=== PATIENT | female | born 1945 | race Two or more races ===

== ENCOUNTER 2023-09-10 14:43 | Emergency (ER) | payer MEDICARE, SELFPAY ==
--- NOTE | ~2023-09-10 | XR_ITS ---
EXAMINATION: XR CHEST CLINICAL INFORMATION: Pain COMPARISON: None available. TECHNIQUE: 2 views of the chest were obtained. FINDINGS: Cardiac silhouette is normal in size. The lungs are well aerated. There is diffuse coarsening of the interstitial markings. There is no lobar consolidation. 8mm nodular density of the right lung apex, nonspecific. No pleural effusion or pneumothorax. Mild degenerative changes of the spine. XR/XR chest 2V IMPRESSION: 1. Diffuse coarsening of the interstitial markings. This is a nonspecific finding but may represent an acute or chronic process. Unfortunately there is no prior imaging available for comparison. 2. 8 mm nodular density of the right lung apex. This is a nonspecific finding. This may represent a pulmonary finding or possibly an osseous abnormality. Further evaluation can be obtained with chest CT as clinically indicated.
--- NOTE | ~2023-09-10 | CT_ITS ---
EXAMINATION: CT ABDOMEN AND PELVIS WITHOUT CONTRAST CLINICAL INFORMATION: Left lower quadrant pain. COMPARISON: None available. TECHNIQUE: Multidetector volumetric imaging was performed from the superior aspect of the liver through the pubic symphysis. Sagittal and coronal reformatted images were obtained on the technologist's workstation. This CT examination was performed using dose optimization techniques as appropriate, variously including the following: *Automated exposure control *Adjustment of mA and/or kV according to patient size (this includes techniques or standardized protocols for targeted exams where dose is matched to indication/reason for exam; i.e. extremities or head) *Use of iterative reconstruction technique DLP: 513 mGy-cm FINDINGS: LUNG BASES: There is mild bibasilar dependent hypoaeration. There are tiny bilateral pleural effusions. There are moderate coronary artery atherosclerotic calcifications. The heart is mildly enlarged. LIVER, GALLBLADDER, AND BILIARY TREE: The liver is normal in size, shape, and attenuation. No focal hepatic lesion or biliary ductal dilatation is present. The gallbladder is unremarkable with no evidence of radiopaque gallstones, gallbladder wall thickening, or obvious pericholecystic inflammatory changes. PANCREAS: Unremarkable. SPLEEN: Unremarkable. ADRENAL GLANDS: Unremarkable. KIDNEYS AND URETERS: The kidneys are normal in size, shape, and attenuation. No hydronephrosis, hydroureter, or calculi seen. The left kidney contains a 1.4 cm mildly complex (Bosniak 2) cyst, with fine septation (3:29). This is a likely benign finding, for which no imaging follow-up is recommended. No perinephric stranding. BLADDER: Unremarkable. GASTROINTESTINAL TRACT: There is mild diverticulosis, without acute diverticulitis. No bowel obstruction, free intraperitoneal air or abscess is seen. There is no focal bowel wall thickening. There is a mild fat halo sign seen of the cecum and transverse colon (i.e., 3:52 and 5:19). The vermiform appendix is not identified; however, there is no finding to suggest appendicitis. ABDOMINAL WALL: No significant hernia is appreciated. LYMPH NODES: Normal. VASCULAR: There is mild aortoiliac atherosclerotic calcification. No abdominal aortic aneurysm is seen. PELVIC VISCERA: Surgically absent. No pelvic mass, free fluid or lymphadenopathy is seen. OSSEOUS STRUCTURES: Posterior fusion hardware is noted at L4-L5. There is multi-level thoracolumbar degenerative disc disease, most pronounced at L2-L3, where there is marked disc space narrowing, vacuum disc phenomenon and spondylosis. No acute or aggressive osseous finding is noted. CT/CT abdomen pelvis wo IV con IMPRESSION: 1. There is mild diverticulosis, without acute diverticulitis. 2. No bowel obstruction, free intraperitoneal air or abscess is seen. The vermiform appendix is not identified. 3. There is a fat halo sign noted of the cecum and transverse colon, as detailed. There is no associated paracolic fat stranding or abscess to suggest this is active. 4. No abdominopelvic mass, free fluid or lymphadenopathy is seen. 5. There is no urinary calculus or obstruction seen. 6. There are postoperative and degenerative changes of the spine, as detailed. 7. There are tiny bilateral pleural effusions, and there is very mild bibasilar dependent hypoaeration. 8. There is mild cardiomegaly, and moderate coronary artery atherosclerotic calcifications are seen. Fleischner guidelines were followed.
[2023-09-10 15:04] VITALS: BP 124/70; PULSE 93; RESP 18; TEMP 36.5; O2SAT 97; BMI 28.0
--- NOTE | 2023-09-10 15:04 | ED_ITS ---
HPI - General Adult General Chief complaint: Abdominal Pain Stated complaint: asthma, L side and back pain Time Seen by Provider: 09/10/23 21:58 Source: patient Mode of arrival: ambulatory Limitations: no limitations History of Present Illness HPI narrative: Patient history of asthma hypertension been coughing for last few days for last 2 days noticed lower abdominal pain on mostly on the left side radiating to the left back associated with nausea and vomiting diarrhea no fever no chills cough is mostly dry no other family member sick Related Data Previous Rx's Medication Instructions Recorded albuterol sulfate 2.5 mg/3 mL 2.5 mg (3 mL) inhalation Q4-6H PRN 09/11/23 (0.083 %) solution for nebulization shortness of breath or wheezing #90 mL albuterol sulfate 90 mcg/actuation 2 puff inhalation Q4-6H PRN 09/11/23 aerosol inhaler (ProAir HFA) shortness of breath or wheezing #8.5 grams codeine 10 mg-guaifenesin 100 mg/5 10 ml PO Q6H PRN cough #237 mL 09/11/23 mL oral liquid prednisone 20 mg tablet 40 mg (2 x 20 mg) PO DAILY #10 tabs 09/11/23 Allergies Allergy/AdvReac Type Severity Reaction Status Date / Time No Known Allergies Allergy Verified 09/10/23 15:03 Review of Systems 2 Review of Systems: Yes all other systems are reviewed and are negative PMFSH Past Medical History Medical History Coronary artery disease Chronic back pain Asthma Hypertension Surgical History History of total abdominal hysterectomy Previous back surgery Social History Social History Advance Directives: No Advance Directives Information Provided: No Physical Exam ED Vital Signs: Vital Signs - 24 hr 09/10/23 15:04 09/10/23 21:27 09/10/23 22:47 Temperature 97.7 F 98.8 F Pulse Rate 93 95 95 Respiratory Rate 18 18 18 Blood Pressure 124/70 188/85 H Pulse Oximetry 97 97 Oxygen Delivery Method Room Air Room Air 09/10/23 23:45 09/11/23 01:38 Temperature 100.2 F 99.1 F Pulse Rate 112 H 103 H Respiratory Rate 20 18 Blood Pressure 117/53 L 103/56 L Pulse Oximetry 94 96 Oxygen Delivery Method Room Air Room Air BMI result Body Mass Index 28.0 Appearance: Alert. Oriented X3. No acute distress. Eyes: PERRLA, No Nystagmus ENT: Pharynx normal. Oral Mucosa moist Neck: Normal inspection. Neck supple. CVS: Normal heart rate and rhythm. Pulses normal. Respiratory: No respiratory distress. Equal air entry bilateral, no wheezing/rales/rhonchi, prolonged expiration Abdomen: Soft , tenderness left lower quadrant with guarding no rebound tenderness. Bowel sounds are present, no mass palpable, no CVA tenderness Skin: Skin warm and dry. Normal skin color. Normal skin turgor. Extremities: + lower extremity edema. No calf tenderness Neuro: Oriented X 3. No motor deficit. No sensory deficit.No cerebellar signs , cranial nerves II-XII intact Course Course Course Narrative: RME- 78-year-old female presents for evaluation fevers body aches, left flank pain and shortness of breath. She has a history of asthma. Plan for labs, chest x-ray, UA, EKG. Medications Administered Discontinued Medications Generic Name Dose Route Start Last Admin Trade Name Freq PRN Reason Stop Dose Admin Acetaminophen 650 mg 09/11/23 00:39 09/11/23 00:54 Acetaminophen 325 Mg Tablet PO 09/11/23 00:40 650 mg ONCE ONE Administration Benzonatate 200 mg 09/10/23 22:19 09/10/23 22:30 Benzonatate 100 Mg Capsule PO 09/10/23 22:20 200 mg ONCE ONE Administration Albuterol Sulfate 2.5 mg/ 0 mg 09/10/23 22:26 09/10/23 22:44 Albuterol/Ipratropium 3 ml INHALE 09/10/23 22:27 7.5 dose ONCE ONE Administration Dexamethasone Sodium Phosphate 10 mg 09/10/23 22:19 09/10/23 22:31 Dexamethasone Sod Phosphate 10 Mg/Ml Vial IVPUSH 09/10/23 22:20 10 mg ONCE ONE Administration Sodium Chloride 1,000 mls @ 999 mls/hr 09/10/23 22:13 09/11/23 00:55 Ns IV 09/10/23 23:13 Infused .Q1H1M ONE Infusion Ketorolac Tromethamine 30 mg 09/11/23 00:39 09/11/23 00:54 Ketorolac Tromethamine 30 Mg/Ml Vial IVPUSH 09/11/23 00:40 30 mg ONCE ONE Administration Morphine Sulfate 4 mg 09/10/23 22:13 09/10/23 22:41 Morphine Sulfate 4 Mg/Ml Cartridge IVPUSH 09/10/23 22:14 4 mg ONCE ONE Administration Protocol Ondansetron HCl 4 mg 09/10/23 22:13 09/10/23 22:37 Ondansetron Hcl 4 Mg/2 Ml Vial IVPUSH 09/10/23 22:14 4 mg ONCE ONE Administration Medical Decision Making Medical Decision Making [facility] Narrative: Patient with COVID coughing with low-grade fever saturating 94% at room air. left sided abdominal pain CT scan negative for acute patient saturation improved after pain medication and nebulizer treatment Differential Diagnosis Differential Diagnoses: The differential diagnosis associated with the presentation includes COVID/diverticulitis/UTI/kidney stone Lab Data [facility] Lab Attestation statement: I reviewed the patient's lab results. 09/10/23 15:49 09/10/23 15:49 Labs: Lab Results 09/10/23 09/10/23 09/10/23 Range/Units 15:49 15:49 15:49 WBC 7.7 (4.8-10.8) X10*3/uL RBC 3.96 L (4.20-5.50) X10*6/uL Hgb 11.6 L (12.0-16.0) g/dl Hct 35.3 L (37.0-47.0) % MCV 89.1 (80.0-98.0) fL MCH 29.3 (27.0-33.0) pg MCHC 32.9 (31.0-35.0) g/dl RDW 14.2 (11.0-16.0) % Plt Count 200 (160-400) X10*3/uL MPV 9.9 (9.4-12.3) fL Immature Gran % (Auto) 0.5 H (0.0-0.4) % Neut % (Auto) 84.8 H (45-73) % Lymph % (Auto) 7.9 L (20-40) % [place]ule[place] % (Auto) 5.6 (2-11) % Eos % (Auto) 0.8 (0-4) % Baso % (Auto) 0.4 (0-2) % Lymph # (Auto) 0.6 L (1.2-4.9) X10*3/uL [place] # (Auto) 0.4 (0.1-1.2) X10*3/uL Eos # (Auto) 0.1 (0.0-0.4) X10*3/uL Baso # (Auto) 0.0 (0.0-0.2) X10*3/uL Abs Immat Gran (auto) 0.04 H (0.00-0.03) X10*3/uL Absolute Neuts (auto) 6.5 (2.0-8.3) x10*3/uL Absolute Nucleated RBC 0.000 (0.0-0.012) X10*3/uL Nucleated RBC % (auto) 0.0 (0.0-0.2) /100WBC PT (11.1-13.3) SEC INR (0.9-1.1) D-Dimer High Sensitivty NG/ML Sodium 135 (135-145) mmol/L Potassium 3.6 (3.3-5.1) mmol/L Chloride 104 (96-108) mmol/L Carbon Dioxide 25 (22-29) mmol/L Anion Gap 10 L (12-20) BUN 16 (9-16) mg/dL Creatinine 0.71 (0.5-1.4) mg/dL Estim Creat Clear Calc 56.3 Estimated GFR > 60 Random Glucose 95 (60-115) mg/dL Calcium 8.9 (8.4-10.2) mg/dL Total Bilirubin 0.2 (0.0-1.0) mg/dL AST 15 (5-31) U/L ALT 10 (0-31) U/L Alkaline Phosphatase 68 (39-117) U/L Troponin I High Sens 5.1 (<3.5-17.0) ng/L B-Natriuretic Peptide (<100) pg/mL Total Protein 6.0 L (6.5-8.0) g/dL Albumin 3.6 (3.5-5.0) g/dL Lipase 24 (8-78) U/L Urine Color Urine Appearance Urine pH (5.0-9.0) Ur Specific Creola (1.005-1.025) Urine Protein (Neg-Trace) mg/dL Urine Glucose (UA) (Negative) mg/dL Urine Ketones (Negative) mg/dL Urine Blood (Negative) Urine Nitrite (Negative) Ur Leukocyte Esterase (Negative) Urine RBC (0-2) /HPF Urine WBC (0-5) /HPF Ur Squamous Epith Cells (0-2) /HPF Urine Bacteria (None Seen) Hyaline Casts (0-2) /LPF COVID-19 (ISAIAS) Cancelled Positive A COVID-19 Clin Com Cancelled See Note Influenza Type A (AYSHA) Negative (Negative) Influenza Type B (AYSHA) Negative (Negative) Influenza A & B Note See Note 09/10/23 09/11/23 Range/Units 15:56 00:27 WBC (4.8-10.8) X10*3/uL RBC (4.20-5.50) X10*6/uL Hgb (12.0-16.0) g/dl Hct (37.0-47.0) % MCV (80.0-98.0) fL MCH (27.0-33.0) pg MCHC (31.0-35.0) g/dl RDW (11.0-16.0) % Plt Count (160-400) X10*3/uL MPV (9.4-12.3) fL Immature Gran % (Auto) (0.0-0.4) % Neut % (Auto) (45-73) % Lymph % (Auto) (20-40) % Archule[place] % (Auto) (2-11) % Eos % (Auto) (0-4) % Baso % (Auto) (0-2) % Lymph # (Auto) (1.2-4.9) X10*3/uL [place] # (Auto) (0.1-1.2) X10*3/uL Eos # (Auto) (0.0-0.4) X10*3/uL Baso # (Auto) (0.0-0.2) X10*3/uL Abs Immat Gran (auto) (0.00-0.03) X10*3/uL Absolute Neuts (auto) (2.0-8.3) x10*3/uL Absolute Nucleated RBC (0.0-0.012) X10*3/uL Nucleated RBC % (auto) (0.0-0.2) /100WBC PT 13.2 (11.1-13.3) SEC INR 1.1 (0.9-1.1) D-Dimer High Sensitivty 359 NG/ML Sodium (135-145) mmol/L Potassium (3.3-5.1) mmol/L Chloride (96-108) mmol/L Carbon Dioxide (22-29) mmol/L Anion Gap (12-20) BUN (9-16) mg/dL Creatinine (0.5-1.4) mg/dL Estim Creat Clear Calc Estimated GFR Random Glucose (60-115) mg/dL Calcium (8.4-10.2) mg/dL Total Bilirubin (0.0-1.0) mg/dL AST (5-31) U/L ALT (0-31) U/L Alkaline Phosphatase (39-117) U/L Troponin I High Sens (<3.5-17.0) ng/L B-Natriuretic Peptide 127 H (<100) pg/mL Total Protein (6.5-8.0) g/dL Albumin (3.5-5.0) g/dL Lipase (8-78) U/L Urine Color Yellow Urine Appearance Clear Urine pH 6.5 (5.0-9.0) Ur Specific Cre[place] 1.010 (1.005-1.025) Urine Protein Negative (Neg-Trace) mg/dL Urine Glucose (UA) Negative (Negative) mg/dL Urine Ketones Trace (Negative) mg/dL Urine Blood Negative (Negative) Urine Nitrite Negative (Negative) Ur Leukocyte Esterase Negative (Negative) Urine RBC 0-2 (0-2) /HPF Urine WBC 0-5 (0-5) /HPF Ur Squamous Epith Cells 0-2 (0-2) /HPF Urine Bacteria None Seen (None Seen) Hyaline Casts 0-2 (0-2) /LPF COVID-19 (ISAIAS) COVID-19 Clin Com Influenza Type A (AYSHA) (Negative) Influenza Type B (AYSHA) (Negative) Influenza A & B Note Independent Interpretation I performed an independent interpretation of an: CT Scan Radiology Impression Discussion of test interpretation with radiology: I have reviewed the radiologist's reading. Discharge Plan Discharge Clinical Impression: COVID-19 Patient Disposition: Home, Self-Care Instructions: COVID-19 (Coronavirus Disease 2019) (ED) Additional Instructions: Social distancing as advised Nebulizing treatment every 4-6 hours as needed Prednisone as prescribed Tylenol/Motrin for fever and body aches Cough drops as prescribed Follow with PCP if not better Distanciamiento social seg?n lo recomendado Tratamiento nebulizador cada 4-6 horas seg?n sea necesario Prednisona seg?n lo prescrito Tylenol/Motrin para la fiebre y los garfield corporales Pastillas para la tos seg?n lo prescrito Seguir con PCP si no es mejor Prescriptions: New prednisone 20 mg tablet 40 mg PO DAILY Qty: 10 0RF codeine-guaifenesin 10-100 mg/5 mL liquid 10 ml PO Q6H PRN (Reason: cough) Qty: 237 0RF albuterol sulfate [ProAir HFA] 90 mcg/actuation HFA aerosol inhaler 2 puff inhalation Q4-6H PRN (Reason: shortness of breath or wheezing) Qty: 8.5 0RF albuterol sulfate 2.5 mg /3 mL (0.083 %) solution for nebulization 2.5 mg inhalation Q4-6H PRN (Reason: shortness of breath or wheezing) Qty: 90 0RF Print Language: Mongolian
--- NOTE | 2023-09-10 15:05 | ECG_ITS ---
Test Reason : pain Blood Pressure : / mmHG Vent. Rate : 086 BPM Atrial Rate : 086 BPM P-R Int : 138 ms QRS Dur : 084 ms QT Int : 366 ms P-R-T Axes : 052 018 024 degrees QTc Int : 437 ms Normal sinus rhythm Normal ECG No previous ECGs available Referred By: Alonso Steward Electronically Signed By:LYLE DOWD MD
[2023-09-10 15:55] LABS: MANUAL DIFF FLAG NO
[2023-09-10 15:58] LABS: Basophils Percent Auto 0.4 % (0-2); Eosinophils Absolute Auto 0.1 X10*3/uL (0.0-0.4); Eosinophils Percent Auto 0.8 % (0-4); Hematocrit 35.3 % (37.0-47.0); Hemoglobin 11.6 g/dl (12.0-16.0); Imm Gran Abs Auto 0.04 X10*3/uL (0.00-0.03); Imm Gran Pct Auto 0.5 % (0.0-0.4); Lymphocytes Absolute Auto 0.6 X10*3/uL (1.2-4.9); Lymphocytes Percent Auto 7.9 % (20-40); Mean Corpuscular HGB Conc 32.9 g/dl (31.0-35.0); Mean Corpuscular Hemoglobin 29.3 pg (27.0-33.0); Mean Corpuscular Volume 89.1 fL (80.0-98.0); Mean Platelet Volume 9.9 fL (9.4-12.3); Monocytes Absolute Auto 0.4 X10*3/uL (0.1-1.2); Monocytes Percent Auto 5.6 % (2-11); Neutrophils Absolute Auto 6.5 x10*3/uL (2.0-8.3); Neutrophils Percent Auto 84.8 % (45-73); Platelet Count 200 X10*3/uL (160-400); Red Blood Count 3.96 X10*6/uL (4.20-5.50); Red Cell Distribution Width 14.2 % (11.0-16.0); White Blood Count 7.7 X10*3/uL (4.8-10.8)
[2023-09-10 16:10] LABS: Alanine Aminotransferase 10 U/L (0-31); Albumin Level 3.6 g/dL (3.5-5.0); Alkaline Phosphatase 68 U/L (39-117); Anion Gap 10 (12-20); Aspartate Amino Transferase 15 U/L (5-31); Bilirubin Total 0.2 mg/dL (0.0-1.0); Blood Urea Nitrogen 16 mg/dL (9-16); Calcium 8.9 mg/dL (8.4-10.2); Carbon Dioxide 25 mmol/L (22-29); Chloride 104 mmol/L (96-108); Creatinine Clr Calc Pharmacy 56.3; Estimated Glomerular Filt Rate > 60; Glucose Random 95 mg/dL (60-115); Lipase 24 U/L (8-78); Potassium 3.6 mmol/L (3.3-5.1); Sodium 135 mmol/L (135-145)
[2023-09-10 16:12] LABS: Appearance Urine Clear; Color Urine Yellow; Glucose Urine UA Negative (Negative); Leukocyte Esterase Urine Negative (Negative); Nitrite Urine Negative (Negative); PH 6.5 (5.0-9.0); Urine Blood Negative (Negative); Urine Ketones Trace mg/dL (Negative); Urine Protein Negative (Neg-Trace)
[2023-09-10 16:17] LABS: Troponin-I High Sensitivity 5.1 ng/L (<3.5-17.0)
[2023-09-10 16:18] LABS: COVID-19 Test Positive (Negative); IDNOW Serial# 152EDE1D
[2023-09-10 16:23] LABS: IDNOW Serial# 9DB6401D; Influenza A Negative (Negative); Influenza B2 Negative (Negative)
[2023-09-10 16:26] LABS: Bacteria Urine None Seen (None Seen); Hyaline Casts Urine 0-2 /LPF (0-2); Squamous Epithelial Cell Urine 0-2 /HPF (0-2); WBC Urine 0-5 /HPF (0-5)
[2023-09-10 16:28] LABS: RBC Urine 0-2 /HPF (0-2)
[2023-09-10 21:27] VITALS: BP 188/85; PULSE 95; RESP 18; TEMP 37.1; O2SAT 97
--- NOTE | 2023-09-10 21:46 | PC.NURSE ---
Patient stating that she is having increased shortness of breath while attempting to go to the bathroom. Vitals taken on patient and O2 sat is stable at 95-97% and BP elevated at 188 SBP, patient was able to catch her breath. Charge informed of patient.
[2023-09-10] MEDS: Benzonatate 100 MG CAPSULE 200 MG PO (22:30)
[2023-09-10] MEDS: dexAMETHasone sod phosphate 10 MG/ML VIAL IVPUSH (22:31)
[2023-09-10] MEDS: 0.9 % Sodium Chloride 1,000 ML 999 ML IV (22:36)
[2023-09-10] MEDS: ondansetron HCL 4 MG/2 ML VIAL IVPUSH (22:37)
[2023-09-10] MEDS: Morphine Sulfate 4 MG/ML CARTRIDGE IVPUSH (22:41)
[2023-09-10] MEDS: Albuterol Sulfate 2.5 MG, Albuterol/Iprat 2.5/0.5MG 3 ML 3 ML INHALE (22:44)
[2023-09-10 22:47] VITALS: PULSE 95; RESP 18; O2SAT 97
--- NOTE | 2023-09-10 23:38 | PC.NURSE ---
Patient states she stills feels sob, even after breathing treatment. Will re check vitals now.
[2023-09-10 23:45] VITALS: BP 117/53; PULSE 112; RESP 20; TEMP 37.9; O2SAT 94
--- NOTE | 2023-09-10 23:48 | MHC.EDTECH ---
This tech assumed care of patient at this time,hourly rounds and vitals completed, temp orally is 100.2 and HR 112,Ade GORDON aware. Patient is resting comfortably at this time,call hodges in reach and daughter at bedside
--- NOTE | 2023-09-11 00:28 | MHC.EDTECH ---
Labs obtained and sent to lab.
[2023-09-11] MEDS: Ketorolac Tromethamine 30 MG/ML VIAL IVPUSH (00:54)
[2023-09-11] MEDS: Acetaminophen 325 MG TABLET 650 MG PO (00:54)
[2023-09-11 00:59] LABS: B Type Natriuretic Peptide 127 pg/mL (<100)
[2023-09-11 01:09] LABS: INTERNATIONAL NORM RATIO 1.1 (0.9-1.1); Prothrombin Time 13.2 SEC (11.1-13.3)
[2023-09-11 01:11] LABS: D Dimer High Sensitivity 359 NG/ML
[2023-09-11 01:38] VITALS: BP 103/56; PULSE 103; RESP 18; TEMP 37.3; O2SAT 96
== END 2023-09-11 01:53 | disposition home or self-care (01) ==
PROVIDERS: Physician Assistant; Emergency Provider Internal Medicine
DX: U07.1 COVID-19 (principal); R10.32 Left lower quadrant pain; I10 Essential (primary) hypertension; M54.50 Low back pain, unspecified; R11.2 Nausea with vomiting, unspecified; Z79.899 Other long term (current) drug therapy
CPT/HCPCS: 36415; 71046; 74176; 80053; 81001; 83690; 83880; 84484; 85025; 85379; 85610; 87502; 87635; 93005; 94640; 96361; 96374; 96375; 99284; 99285; J1100; J1885; J2270; J2405

== ENCOUNTER → 2023-09-10 15:05 | Outpatient (BNV) | payer MEDICARE, SELFPAY | PROVIDERS: Emergency Provider Internal Medicine; Visit Provider Internal Medicine Cardiovascular Disease | DX: R07.9 Chest pain, unspecified (principal) | CPT/HCPCS: 93010 ==